=== PATIENT | female | born 1990 | race Caucasian/White ===

== ENCOUNTER → 2018-09-21 | Outpatient (CLI) | payer OTHER ==
--- NOTE | 2018-09-21 15:03 | REP ---
Right upper quadrant sonography: History: Right flank pain. Abdomen pain after eating. Nausea and vomiting. Elevated LFTs. Findings: Scanning through the right upper quadrant and demonstrates the 2.2 x 2.2 x 1.1 cm hyperechoic lesion in the left lobe of the liver consistent with hemangioma versus focal fatty infiltration. No other focal liver lesion is seen. The common bile duct is normal measuring 0.5 cm. The gallbladder is surgically absent. There is no evidence of ascites or right renal abnormality. The right kidney measures 10.0 x 5.5 x 3.7 cm. Limited views of the pancreas show no abnormality. Impression: 2.2 cm hyperechoic area in the left lobe of the liver which may be a hemangioma versus focal fatty infiltration. Gallbladder surgically absent. Otherwise negative right upper quadrant sonography. Electronically Signed by Shoaib Arce MD 09/21/2018 03:14 P
== END ==
LOC: M RAD 13:57
PROVIDERS: ATTEND Physician Assistant Medical
DX: R11.2 Nausea with vomiting, unspecified (principal); R10.9 Unspecified abdominal pain; R94.5 Abnormal results of liver function studies